=== PATIENT | female | born 1960 | race Caucasian/White ===

== ENCOUNTER 2022-12-30 09:38 | Observation (INO) | payer BC, SELFPAY ==
[2022-12-30] VITALS (7 sets, daily range): BP systolic 152–168; BP diastolic 74–90; PULSE 60–78; RESP 18–22; TEMP 36.7–37.2; O2SAT 92–98; BMI 30.7; BMI 30.5
--- NOTE | 2022-12-30 10:23 | CT_ITS ---
[address] [address] Patient Name: JOEL DEWITT MRN: [id number] date: 1960 Sex: F Assigned Patient Location: ED.MAIN Current Patient Location: Accession/Order Number: [id number] Exam Date: 12/30/2022 11:39 Report Date: 12/30/2022 12:20 At the request of: NOREEN ESTRADA Procedure: CT abdomen pelvis w con EXAMINATION: CT abdomen pelvis w con HISTORY: RUQ abdominal pain, nausea vomiting COMPARISON: Ultrasound right upper quadrant 12/29/2022 TECHNIQUE: Axial, Coronal, and Sagittal images were obtained without and/or with IV contrast as indicated by examination type. Dose reduction techniques were achieved by using automated exposure control and/or adjustment of mA and/or kV according to patient size and/or use of iterative reconstruction technique. FINDINGS: LUNG BASES: No visible pulmonary or pleural disease. LIVER: No enlargement, atrophy, suspicious density, or significant focal lesion. BILIARY: Circumferential gallbladder wall thickening up to 6 mm. Within gallbladder neck is a 2.0 cm stone. No free fluid or abnormal duct dilation. PANCREAS: No lesion, fluid collection, or abnormal duct dilatation. SPLEEN: No enlargement or focal lesion. ADRENALS: No mass or enlargement. KIDNEYS: No mass, obstruction, or calcification. BOWEL/MESENTERY: Prior sigmoid resection and anastomosis. Diverticula scattered along the colon without acute inflammatory changes. No visible mass, obstruction, or bowel wall thickening. Normal appendix. AORTA/VASCULAR: No aneurysm or dissection. RETROPERITONEUM: No mass or adenopathy. LYMPH NODES: No adenopathy. URINARY BLADDER: No visible focal wall thickening, lesion, or calculus. PELVIC ORGANS: No visible mass. Pelvic organs appropriate for patient age. ABDOMINAL WALL: No mass or hernia. BONES: No bony lesion or fracture. OTHER: Negative. IMPRESSION: 1.Cholelithiasis and acute cholecystitis. Electronically authenticated by: JUDY TALLEY Date: 12/30/2022 12:20
--- NOTE | 2022-12-30 11:02 | ED_ITS ---
HPI - Abdominal Pain General Chief Complaint: Abdominal Pain Time Seen by Provider: 12/30/22 10:22 Source: patient Mode of arrival: walk-in Limitations: no limitations History of Present Illness HPI narrative: cc - abdominal pain patient returns complaining of RUQ abd pain. 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 She had pain this morning along with nausea. Only drank water - nothing to eat or drink. She was evaluated in our ED yesterday and GB US revealed gallstones without signs of acute cholecystitis. No fever or chills. Pain radiates to right flank. She told me that she called Dr Hooper' office and they could not get her an appointment until next week. She also tried to schedule an appointment with Dr Hess but was told that since he was not personal lines advisor this week they could not sc hedule a follow up appointment. Related Data Home Medications Medication Instructions Recorded Confirmed citalopram 40 mg tablet 40 mg PO .daily 12/30/22 12/30/22 famotidine 20 mg tablet 20 mg PO Q12H 12/30/22 12/30/22 Allergies Allergy/AdvReac Type Severity Reaction Status Date / Time penicillin G Allergy Severe Verified 12/30/22 10:02 adhesive tape AdvReac Intermediate Verified 12/30/22 10:02 Exam Narrative: Exam Narrative: Nurses notes and vital signs reviewed and patient is not hypoxic. General: Well-appearing and in no apparent distress. Skin: Warm, dry, no pallor noted. No rash. Head: Normocephalic, atraumatic. Neck: Supple, non-tender. Eye: Pupils are equal, round and EOMI. No scleral icterus. Ears, Nose, Mouth, and Throat: TM are clear, no nasal mucosal hypertrophy. Oral mucosa is moist, no posterior oropharynx erythema, uvula is mid-line Cardiovascular: Regular Rate and Rhythm without murmur, gallop or rub. Respiratory: No accessory muscle use or respiratory distress. Lungs are clear to auscultation, no wheezing, rales or rhonchi Chest Wall: no tenderness Back: No midline thoracic or lumbar vertebral tenderness. No CVA tenderness Musculoskeletal: normal ROM, no calf or popliteal tenderness, no lower extremity edema/swelling GI: Abdomen is soft, non-distended. Normal bowel sounds. No masses appreciated. No tenderness to palpation. No rebound, guarding, or rigidity noted. Neurological: A&O x4. No cranial nerve dysfunction observed. No truncal ataxia. Moves all extremities. Sensation intact. Psychiatric: Cooperative and interactive. Normal mood and affect. Constitutional: Vital Signs, click to edit/add: Vital Signs - 24 hr 12/30/22 09:56 Temperature 98.5 F Pulse Rate [Monito r Left] 77 Respiratory Rate 22 Blood Pressure [Le ft Arm] 166/90 H Pulse Oximetry 97 Oxygen Delivery Me thod Room Air Course Vital Signs Vital signs: Vital Signs Temperature 98.5 F 12/30/22 09:56 Pulse Rate 77 12/30/22 09:56 Respiratory Rate 22 12/30/22 09:56 Blood Pressure 166/90 H 12/30/22 09:56 Pulse Oximetry 97 12/30/22 09:56 Oxygen Delivery Method Room Air 12/30/22 09:56 Temperature 98.5 F 12/30/22 09:56 Pulse Rate 77 12/30/22 09:56 Respiratory Rate 22 12/30/22 09:56 Blood Pressure 166/90 H 12/30/22 09:56 Pulse Oximetry 97 12/30/22 09:56 Oxygen Delivery Method Room Air 12/30/22 09:56 MDM - Abdominal Pain MDM Narrative Medical decision making narrative: peripheral IV established and blood drawn and sent for testing. The patient was sent for CT scanning of the abdomen pelvis with contrast. The patient received normal saline IV fluid, IV Dilaudid, IV Zofran and oral dissolvable While We Awaited the Results of Her Testing. CT revealed acute cholecystitis in addition to the cholelithiasis seen on yesterday's ultrasound. WBC slightly elevated at 11.7 with left shift. Unremarkable LFTs and normal ernal function On recheck, the patient felt better after Emergency Department treatment. Case discussed with the on-call general surgeon. Dr. Hooper agreed to admit this patient and his service with plans to take the patient's surgery tomorrow. The patient is ALLERGIC to penicillin therefore we gave IV Cipro and IV Flagyl. The patient is agreeable to admission. Lab Data Labs: Lab Results 12/30/22 Range/Units 11:06 WBC 11.7 H (4.0-11.0) 10^3/uL RBC 5.21 (4.20-5.40) 10^6/uL Hgb 14.6 (12.0-16.0) g/dL Hct 45.3 (36.0-48.0) % MCV 86.9 (81.0-99.0) fL MCH 28.0 (26.7-34.0) pg MCHC 32.2 (29.9-35.2) g/dL RDW 13.5 (11.0-15.0) % Plt Count 353 (150-450) 10^3/uL MPV 10.1 (9.5-13.5) fL Neut % (Auto) 81.1 H (43.0-75.0) % Lymph % (Auto) 14.0 L (20.5-60.0) % [place] % (Auto) 4.0 (1.7-12.0) % Eos % (Auto) 0.2 L (0.9-7.0) % Baso % (Auto) 0.4 (0.2-2.0) % Neut # (Auto) 9.5 H (1.4-6.5) 10^3/uL Lymph # (Auto) 1.6 (1.2-3.8) 10^3/uL Independence # (Auto) 0.5 (0.3-0.8) 10^3/uL Eos # (Auto) 0.0 (0.0-0.7) 10^3/uL Baso # (Auto) 0.1 (0.0-0.1) 10^3/uL Nucleated RBCs 0 Sodium 143 (136-145) mmol/L Potassium 4.0 (3.5-5.1) mmol/L Chloride 105 (98-107) mmol/L Carbon Dioxide 26.4 (21.0-32.0) mmol/L Anion Gap 15.6 BUN 8.0 (7.0-18.0) mg/dL Creatinine 0.87 (0.55-1.02) mg/dL Est GFR ( Amer) >60 (>=60) Est GFR (Non-Af Amer) >60 (>=60) BUN/Creatinine Ratio 9.2 Glucose 109 H (74-106) mg/dL Calcium 9.5 (8.5-10.1) mg/dL Total Bilirubin 0.5 (0.2-1.0) mg/dL AST 17 (15-37) U/L ALT 21 (14-59) U/L Total Protein 8.0 (6.4-8.2) g/dL Albumin 3.8 (3.4-5.0) g/dL Globulin 4.2 g/dL Albumin/Globulin Ratio 0.9 Lipase 63.0 L (73.0-393.0) U/L Discharge Plan Discharge Chief Complaint: Abdominal Pain Clinical Impression: Acute calculous cholecystitis Patient Disposition: Admitted As Inpatient Time of Disposition Decision: 12:39 Condition: Good Prescriptions: No Action citalopram 40 mg tablet 40 mg PO .daily famotidine 20 mg tablet 20 mg PO Q12H Referrals: Yair De La Cruz [Primary Care Provider] - 1 week
[2022-12-30 11:13] LABS: Basophils Absolute Auto 0.1 10^3/uL (0.0-0.1); Basophils Percent Auto 0.4 % (0.2-2.0); Eosinophils Percent Auto 0.2 % (0.9-7.0); Hematocrit 45.3 % (36.0-48.0); Hemoglobin 14.6 g/dL (12.0-16.0); Immature Granulocytes Abs Auto 0.03 10^3/uL (0.00-0.03); Immature Granulocytes Pct Auto 0.3 % (0.0-0.5); Lymphocytes Absolute Auto 1.6 10^3/uL (1.2-3.8); Mean Corpuscular HGB Conc 32.2 g/dL (29.9-35.2); Mean Corpuscular Volume 86.9 fL (81.0-99.0); Mean Platelet Volume 10.1 fL (9.5-13.5); Monocytes Absolute Auto 0.5 10^3/uL (0.3-0.8); Neutrophils Absolute Auto 9.5 10^3/uL (1.4-6.5); Neutrophils Percent Auto 81.1 % (43.0-75.0); Nucleated Red Blood Cells 0; Platelet Count 353 10^3/uL (150-450); Red Blood Count 5.21 10^6/uL (4.20-5.40); Red Cell Distribution Width 13.5 % (11.0-15.0); White Blood Count 11.7 10^3/uL (4.0-11.0)
[2022-12-30] MEDS: HYOSCYAMINE SULFATE 0.125 MG TAB.SUBL SL (11:21)
[2022-12-30] MEDS: ONDANSETRON PF 4 MG/2 ML VIAL IV ×2 (11:21→16:10)
[2022-12-30] MEDS: 0.9 % SODIUM CHLORIDE 1,000 ML 100 ML IV (11:22)
[2022-12-30] MEDS: HYDROMORPHONE HCL 1 MG/ML CARTRIDGE IVP (11:22)
[2022-12-30 11:27] LABS: Alanine Aminotransferase 21 U/L (14-59); Albumin Globulin Ratio 0.9; Albumin Level 3.8 g/dL (3.4-5.0); Alkaline Phosphatase 78 U/L (46-116); Anion Gap 15.6; Aspartate Amino Transferase 17 U/L (15-37); BUN Creatinine Ratio 9.2; Bilirubin Total 0.5 mg/dL (0.2-1.0); Calcium 9.5 mg/dL (8.5-10.1); Carbon Dioxide 26.4 mmol/L (21.0-32.0); Chloride 105 mmol/L (98-107); Estimated GFR (African America >60 (>=60); Estimated GFR (Non-African Ame >60 (>=60); Globulin 4.2 g/dL; Glucose 109 mg/dL (74-106); Sodium 143 mmol/L (136-145)
--- NOTE | 2022-12-30 11:45 | PC.NURSE ---
pt states nausea is improved after receiving IV nausea medication
[2022-12-30] MEDS: METRONIDAZOLE/SODIUM CHLORIDE 500 MG/100 ML PREMIX 100 MG IV (13:05)
[2022-12-30] MEDS: CIPROFLOXACIN IN 5 % DEXTROSE 400 MG/200 ML PIGGYBACK 200 MG IV ×2 (15:07→23:11)
--- NOTE | 2022-12-30 16:02 | P.HP_ITS ---
H&P: HPI History of Present Illness Chief complaint: Acute cholecystitis Narrative: Timothy Fall is a 62-year-old female presented to the [facility] Emergency Department for 2nd day in a row with complaints of right upper quadrant pain radiating to the back which began on Tuesday. She had an ultrasound the gallbladder performed yesterday which showed gallstones without acute cholecystitis. Today she had a CT scan of the abdomen and pelvis which demonstrated acute cholecystitis with cholelithiasis. She admits to nausea and vomiting but denies any fevers or chills or jaundice. Her white blood count slightly elevated eleven thousand. She hasn't been able to keep any food down for two days. 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 She smokes ten cigarettes daily for forty-two years. She denies alcohol use and sixteen years. She consumes caffeine regularly. Denies any history of ulcer disease or gastritis. 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 Review of Systems ROS Status of ROS 10 or more systems reviewed and unremarkable except as noted in h istory and below [facility] Medical History (Updated 12/30/22 @ 16:08 by Chucky Hooper MD) Surgical History Meds Home Medications and Allergies Home Medications Medication Instructions Recorded Confirmed Type citalopram 40 mg tablet 40 mg PO .daily 12/30/22 12/30/22 History famotidine 20 mg tablet 20 mg PO Q12H 12/30/22 12/30/22 History Allergies Allergy/AdvReac Type Severity Reaction Status Date / Time penicillin G Allergy Severe Verified 12/30/22 10:02 adhesive tape AdvReac Intermediate Verified 12/30/22 10:02 Exam Narrative: Exam Narrative: alert and oriented to person place and time and no acute distress Constitutional: Vital Signs, click to edit/add: Vital Signs - 24 hr 12/30/22 09:56 12/30/22 13:54 12/30/22 14:43 Temperature 98.5 F 98.1 F Pulse Rate 60 Pulse Rate [Monito r Left] 77 Respiratory Rate 22 18 Blood Pressure [Le ft Arm] 166/90 H 168/79 H Pulse Oximetry 97 95 Oxygen Delivery Me thod Room Air Room Air Room Air 12/30/22 14:43 Temperature Pulse Rate Pulse Rate [Monito r Left] 62 Respiratory Rate 18 Blood Pressure [Le ft Arm] Pulse Oximetry Oxygen Delivery Me thod Room Air HENMT: Common normals: normocephalic, head/scalp atraumatic and hearing grossly normal bilaterally Chest: Common normals: inspection of chest normal Cardio: Common normals: regular rate GI: Common normals: Normal to inspection, nondistended, normoactive bowel sounds present, soft to palpation, non-tender, no hepatosplenomegaly and no masses Inspection: other (scars present from prior surgical procedures) Neuro: Common normals: oriented x3 Psych: Common normals: mental status grossly normal Skin: Common normals: no rashes or lesions noted, no wounds, skin turgor normal and no jaundice Results Labs Labs: Short CBC 12/30/22 Range/Units 11:06 WBC 11.7 H (4.0-11.0) 10^3/uL Hgb 14.6 (12.0-16.0) g/dL Hct 45.3 (36.0-48.0) % Plt Count 353 (150-450) 10^3/uL BMP 12/30/22 11:06 Sodium 143 Potassium 4.0 Chloride 105 Carbon Dioxide 26.4 BUN 8.0 Creatinine 0.87 Glucose 109 H Calcium 9.5 Liver Function 12/30/22 Range/Units 11:06 Total Bilirubin 0.5 (0.2-1.0) mg/dL AST 17 (15-37) U/L ALT 21 (14-59) U/L Albumin 3.8 (3.4-5.0) g/dL Imaging CT scan - abdomen: Attestation: I have reviewed the pertinent imaging results. Assessment and Plan Assessment and Plan (1) Acute calculous cholecystitis: (2) Anxiety: (3) Tobacco abuse: Plan Tobacco cessation discussed with patient Robotic cholecystectomy with possible open cholecystectomy. Risks benefits and alternatives to surgery may include infection, bleeding, bile duct injury, blood clots to the legs or lungs, pneumonia, heart attack, stroke, and/or . She voiced understanding of all the above and wish to proceed.
[2022-12-30] MEDS: HYDROMORPHONE HCL 0.5 MG/0.5 ML SYRINGE IV ×2 (16:10→20:30)
--- NOTE | 2022-12-30 17:10 | PM.HP ---
H&P: HPI History of Present Illness Chief complaint: Acute cholecystitis Narrative: Patient is a 62-year-old female with past medical history of anxiety and tobacco abuse who presents with a three-day history of right upper quadrant pain and intractable nausea vomiting. She denies any fevers chills or diarrhea. She was found to have acute on the cystitis with Lola lithiasis on CT scan in the Emergency Room. Patient was admitted for surgery scheduled for tomorrow under the care of Dr. Hooper. Patient denies wanting any nicotine patch at this time. She states that she can easily climb two flights of stairs without having shortness of breath or chest pain. She has had several previous surgeries including a colon resection and has never had any issues with anesthesia in the past. Denies any family history of any issues with anesthesia. She denies any heart history history of diabetes. She takes Celexa only for her anxiety and some famotidine for GERD symptoms. Review of Systems ROS Narrative ROS: a complete review of systems were reviewed with patient and are positive as below or listed in History of Chief Complaint. General: no fever, chills, night sweats Head: no headache, trauma, visual changes, nausea or vomiting Skin: no reported rashes, itching or sores Eyes: no blurriness of vision Ears: no reported hearing loss, vertigo, earache, or tinnitus Throat: no sore throat, hoarseness, swelling of neck, or tongue pain Heart: no chest pain Lungs: no shortness of breath or cough GI: no diarrhea or but vomiting/nausea Urinary: no urinary urgency, frequency or pain Neuro: no numbness or tingling HEM: no bleeding issues or bruising ENDO: no thyroid problems Psych: no anxiety or depression PFSH PFSH Medical History Surgical History Meds Home Medications and Allergies Home Medications Medication Instructions Recorded Confirmed Type citalopram 40 mg tablet 40 mg PO .daily 12/30/22 12/30/22 History famotidine 20 mg tablet 20 mg PO Q12H 12/30/22 12/30/22 History Allergies Allergy/AdvReac Type Severity Reaction Status Date / Time penicillin G Allergy Severe Verified 12/30/22 10:02 adhesive tape AdvReac Intermediate Verified 12/30/22 10:02 Exam Narrative: Exam Narrative: General: Patient is alert, and oriented to person, place and time with normal affect, proper hygiene Skin: no visible rashes, or ulcers Head: atraumatic, acephalic Eyes: PERRLA, no nystagmus present, conjunctiva clear, no scleral icterus Ears: normal gross auditory acuity Nose: symmetric, no discharge, no maxillary or frontal sinus tenderness Mouth/Throat: no erythema, exudate, or tonsillar enlargement, normal dentition Neck: no masses palpated, normal thyroid, no JVD or audible carotid bruits Heart: Normal rate and rhythm, no murmurs/rubs/gallops Lungs: no audible wheezes, crackles and normal breath sounds all lung pearl Abdomen: palpable pain RUQ, some rebound/guarding/ or rigidity Musculoskeletal: muscle atrophy noted, ROM is limited due to being in hospital bed, no swelling bilateral lower extremities Vascular: Normal carotid, radial, femoral, posterior tibial, and dorsalis pedis pulses Lymph: no supraclavicular, axillary, or anterior/posterior cervical adenopathy Neuro: CN II-X grossly intact, normal sensation upper and lower extremities Constitutional: Vital Signs, click to edit/add: Vital Signs - 24 hr 12/30/22 09:56 12/30/22 13:54 12/30/22 14:43 Temperature 98.5 F 98.1 F Pulse Rate 60 Pulse Rate [Monito r Left] 77 Respiratory Rate 22 18 Blood Pressure [Le ft Arm] 166/90 H 168/79 H Pulse Oximetry 97 95 Oxygen Delivery Me thod Room Air Room Air Room Air 12/30/22 14:43 12/30/22 16:59 Temperature Pulse Rate Pulse Rate [Monito r Left] 62 Respiratory Rate 18 Blood Pressure [Le ft Arm] Pulse Oximetry 98 Oxygen Delivery Me thod Room Air Results Labs Labs: Short CBC 12/30/22 Range/Units 11:06 WBC 11.7 H (4.0-11.0) 10^3/uL Hgb 14.6 (12.0-16.0) g/dL Hct 45.3 (36.0-48.0) % Plt Count 353 (150-450) 10^3/uL BMP 12/30/22 11:06 Sodium 143 Potassium 4.0 Chloride 105 Carbon Dioxide 26.4 BUN 8.0 Creatinine 0.87 Glucose 109 H Calcium 9.5 Liver Function 12/30/22 Range/Units 11:06 Total Bilirubin 0.5 (0.2-1.0) mg/dL AST 17 (15-37) U/L ALT 21 (14-59) U/L Albumin 3.8 (3.4-5.0) g/dL Assessment and Plan Assessment and Plan (1) Acute calculous cholecystitis: (2) Anxiety: (3) Tobacco abuse: Plan #1 acute Lola cystitis with cholelithiasis-nothing by mouth, will provide good hydration with LR at one twenty-five, surgery scheduled for tomorrow #2 anxiety-given Vistaril for nighttime #3 elevated blood pressure-when necessary hydralazine #4 tobacco abuse-is not desire to quit and does not want a nicotine patch at this time Patient is a full code Patient is admitted to observation status and is not expected to stay more than one night SCDs for deep vein thrombosis prophylaxis as patient is scheduled for surgery tomorrow hold aspirin
[2022-12-30] MEDS: PANTOPRAZOLE SODIUM 40 MG VIAL IV (17:52)
[2022-12-30] MEDS: LACTATED RINGER'S SOLUTION 1,000 ML 125 ML IV (17:53)
[2022-12-30] MEDS: PROMETHAZINE HCL 25 MG/ML VIAL IV (20:33)
[2022-12-30 22:05] LABS: Bilirubin Urine NEGATIVE (NEGATIVE); Blood Urine TRACE-I (NEGATIVE); Clarity Urine CLEAR (CLEAR); Color Urine YELLOW (YELLOW); Glucose Urine UA NEGATIVE (NEGATIVE); Ketones Urine >=80 mg/dL (NEGATIVE); Leukocyte Esterase Urine NEGATIVE (NEGATIVE); Nitrite Urine NEGATIVE (NEGATIVE); Protein Urine NEGATIVE (NEG/TRACE); Specific Gravity Urine 1.015 (1.005-1.025); pH Urine 6.5 (5.0-9.0)
[2022-12-30 22:11] LABS: Bacteria Urine TRACE #/HPF (NONE SEEN); Mucus Urine NONE SEEN (NONE SEEN); Squamous Epithelial Cell Urine FEW #/LPF (NONE/RARE); WBC Urine 0-2 #/HPF (NONE SEEN)
[2022-12-30 22:12] LABS: Cast Seen? NONE SEEN #/LPF (NONE SEEN); Crystals Seen? None Seen #/HPF (None Seen); Urine Culture Indicated NO
[2022-12-31] VITALS (18 sets, daily range): BP systolic 97–165; BP diastolic 63–87; PULSE 68–104; RESP 12–20; TEMP 36.8–37.1; O2SAT 90–98
[2022-12-31] MEDS: HYDROMORPHONE HCL 0.5 MG/0.5 ML SYRINGE IV ×2 (00:28→19:45)
[2022-12-31] MEDS: METRONIDAZOLE/SODIUM CHLORIDE 500 MG/100 ML PREMIX 100 MG IV ×2 (03:00→16:41)
[2022-12-31] MEDS: LACTATED RINGER'S SOLUTION 1,000 ML 125 ML IV ×3 (04:40→16:40)
[2022-12-31 05:54] LABS: Hematocrit 46.3 % (36.0-48.0); Hemoglobin 15.2 g/dL (12.0-16.0); Mean Corpuscular HGB Conc 32.8 g/dL (29.9-35.2); Mean Corpuscular Hemoglobin 28.8 pg (26.7-34.0); Mean Corpuscular Volume 87.7 fL (81.0-99.0); Mean Platelet Volume 10.7 fL (9.5-13.5); Platelet Count 332 10^3/uL (150-450); Red Blood Count 5.28 10^6/uL (4.20-5.40); Red Cell Distribution Width 13.7 % (11.0-15.0); White Blood Count 17.2 10^3/uL (4.0-11.0)
[2022-12-31 06:32] LABS: INR 1.01; Prothrombin Time 10.7 sec (9.0-11.6)
[2022-12-31] MEDS: ONDANSETRON PF 4 MG/2 ML VIAL IV (06:47)
--- NOTE | 2022-12-31 07:22 | PM.GSPRC ---
Date of procedure: 12/31/22 Pre-op diagnosis: acute cholecystitis with cholelithiasis Post-op diagnosis: same Procedure: robotic cholecystectomy with IC green 62-year-old female presented to the Emergency Department with acute cholecystitis and cholelithiasis. She was taken to the operating suite informed consent was obtained from the patient for robotic cholecystectomy. Risks benefits and alternatives to procedure were explained to the patient in detail. She agreed to the procedure. Patient was given a general anesthetic by the food safety field specialist. The abdomen was prepped and draped usual sterile fashion. Timeout was taken. Preoperative antibiotics have been given. SCDs were placed on bilateral lower extremities. A subumbilical incision was made down to the anterior rectus fascia was opened on the midline and traction sutures of 0 Vicryl were placed. Peritoneal cavity was entered. A Quintero port was placed into the abdomen which was insufflated to fifteen mm carbon monoxide pressure. Next an 8 mm port was placed in the left upper quadrant under direct visualization and two more 8 mm ports in the right midclavicular line lower abdomen and right lateral lower abdomen under direct visualization. Patient was then placed into reverse Trendelenburg position with left side down. The robot was then docked. All instruments were inserted into the peritoneal cavity under direct visualization and the progress was used to grasp the dome of the gallbladder and retracted cephalad liver and then the other grasper was used on Felder's pouch retracted laterally. The dissector was then used to dissect out the cystic duct and cystic artery. Small rent was made in the gallbladder and this had to be suction irrigated. The gallbladder was extremely distended and acute. The IC Knapp was not of help in finding the ducts due to acute inflammation? Critical view was taken anterior and posterior to the cystic duct and cystic artery after they had been clipped with two clips away from the gallbladder one clip on the gallbladder side and then they were transected. The gallbladder was taken off the liver with hook dissector maintaining hemostasis. The gallbladder opened and spilled because of being distended. This was all suctioned out as much as possible. Once the gallbladder removed from the liver bed it was put into an Endobag through the umbilical port after removing one of the graspers. Irrigation was carried out with 1 L saline and aspirated. The umbilical incision had to be extended in order to get the distended gallbladder out and that was done and then that opening was closed with 0 Vicryl suture in interrupted fashion and then all skin incisions were closed with 4 Monocryl suture in running subicular fashion after anesthetizing incisions with half percent plain Marcaine 30 mL total after removing all ports from the abdominal wall. Sterile dressings were placed. Sponge and instrument counts were correct. Findings: acute cholecystitis with cholelithiasis Anesthesia: GETA and none Surgeon: Chucky Hooper Estimated blood loss (mL): 75 Specimens: gallbladder and stones Complications: No Condition: stable Disposition: PACU
[2022-12-31 07:24] LABS: Alanine Aminotransferase 23 U/L (14-59); Albumin Globulin Ratio 0.8; Albumin Level 3.5 g/dL (3.4-5.0); Alkaline Phosphatase 75 U/L (46-116); Anion Gap 17.2; Aspartate Amino Transferase 19 U/L (15-37); BUN Creatinine Ratio 6.4; Bilirubin Total 0.5 mg/dL (0.2-1.0); Calcium 9.1 mg/dL (8.5-10.1); Carbon Dioxide 23.3 mmol/L (21.0-32.0); Chloride 104 mmol/L (98-107); Estimated GFR (African America >60 (>=60); Estimated GFR (Non-African Ame >60 (>=60); Globulin 4.2 g/dL; Glucose 140 mg/dL (74-106); Potassium 3.5 mmol/L (3.5-5.1); Sodium 141 mmol/L (136-145); Total Protein 7.7 g/dL (6.4-8.2)
[2022-12-31] MEDS: INDOCYANINE GREEN 25 MG VIAL 5 MG INJ (07:27)
[2022-12-31] MEDS: SCOPOLAMINE 1 EACH PATCH.TD.3 1 PATCH TD (07:30)
[2022-12-31] MEDS: BUPIVACAINE HCL 0.5% PF 50 MG/10 ML VIAL 20 ML INJ (08:51)
--- NOTE | 2022-12-31 09:55 | PC.NURSE ---
4 bandaids to abdomen; right lateral, right medial, umbilicus and left
[2022-12-31] MEDS: CIPROFLOXACIN IN 5 % DEXTROSE 400 MG/200 ML PIGGYBACK 200 MG IV ×2 (10:32→21:02)
--- NOTE | 2022-12-31 10:48 | CM.NOTE ---
Rounds made with Dr. Simpson, pt in OR at this time. Dr. Simpson will see pt when surgery complete and pt back to room.
--- NOTE | 2022-12-31 14:41 | P.PN_ITS ---
Progress Note: Subjective Subjective Interval history: Patient is a 62-year-old female with past medical history of anxiety and tobacco abuse who presents with a three-day history of right upper quadrant pain and intractable nausea vomiting. She denies any fevers chills or diarrhea. She was found to have acute on the cystitis with Lola lithiasis on CT scan in the Emergency Room. Patient was admitted for surgery scheduled for tomorrow under the care of Dr. Hooper. Patient denies wanting any nicotine patch at this time. She states that she can easily climb two flights of stairs without having shortness of breath or chest pain. She has had several previous surgeries including a colon resection and has never had any issues with anesthesia in the past. Denies any family history of any issues with anesthesia. She denies any heart history history of diabetes. She takes Celexa only for her anxiety and jason e famotidine for GERD symptoms. I am seeing her today post-op, She is doing well. Pain is controlled. No concerns at this time. Exam Narrative: Exam Narrative: General: Patient is alert, and oriented to person, place and time with normal affect, proper hygiene Skin: no visible rashes, or ulcers Head: atraumatic, acephalic Heart: Normal rate and rhythm, no murmurs/rubs/gallops Lungs: no audible wheezes, crackles and normal breath sounds all lung pearl Abdomen: abdomen tender, no rigidity, dressings c/d/i Musculoskeletal: no swelling bilateral lower extremities Lymph: no supraclavicular, axillary, or anterior/posterior cervical adenopathy Neuro: CN II-X grossly intact, normal sensation upper and lower extremities Constitutional: Vital Signs, click to edit/add: Vital Signs - 24 hr 12/30/22 14:43 12/30/22 14:43 12/30/22 16:59 Temperature 98.1 F Pulse Rate 60 Pulse Rate [Monito r Left] 62 Respiratory Rate 18 18 Blood Pressure Blood Pressure [Le ft Arm] 168/79 H Blood Pressure [Ri ght Arm] Pulse Oximetry 95 98 Oxygen Delivery Me thod Room Air Room Air 12/30/22 18:05 12/30/22 20:02 12/30/22 21:50 Temperature 99 F Pulse Rate 78 Pulse Rate [Monito r Left] Respiratory Rate 18 Blood Pressure Blood Pressure [Le ft Arm] 152/74 H Blood Pressure [Ri ght Arm] Pulse Oximetry 94 L 98 92 L [facility] 12/30/22 22:01 12/31/22 02:00 12/31/22 04:41 Temperature Pulse Rate Pulse Rate [Monito r Left] Respiratory Rate Blood Pressure Blood Pressure [Le ft Arm] Blood Pressure [Ri ght Arm] Pulse Oximetry 94 L 95 96 [facility] 12/31/22 06:46 12/31/22 09:15 12/31/22 09:20 Temperature 98.5 F 98.8 F Pulse Rate 75 103 H 94 H Pulse Rate [Monito r Left] Respiratory Rate 18 18 18 Blood Pressure 132/87 H 133/82 H Blood Pressure [Le ft Arm] Blood Pressure [Ri ght Arm] 165/76 H Pulse Oximetry 92 L 95 93 L Oxygen Delivery [facility] Room Air Room Air 12/31/22 09:25 12/31/22 09:30 12/31/22 09:35 Temperature Pulse Rate 98 H 83 89 Pulse Rate [Monito r Left] Respiratory Rate 14 16 12 Blood Pressure 133/75 H 131/77 H 138/77 H Blood Pressure [Le ft Arm] Blood Pressure [Ri ght Arm] Pulse Oximetry 98 92 L 93 L Oxygen Delivery [facility] Room Air Room Air 12/31/22 09:45 12/31/22 09:55 12/31/22 10:14 Temperature 98.3 F Pulse Rate 75 74 85 Pulse Rate [Monito r Left] Respiratory Rate 20 16 16 Blood Pressure 141/75 H 127/77 H Blood Pressure [Le ft Arm] Blood Pressure [Ri ght Arm] 145/79 H Pulse Oximetry 93 L 93 L 90 L Oxygen Delivery [facility] Room Air Room Air Room Air 12/31/22 10:35 12/31/22 10:54 12/31/22 11:18 Temperature Pulse Rate 68 80 68 Pulse Rate [Monito r Left] Respiratory Rate 14 16 14 Blood Pressure Blood Pressure [Le ft Arm] Blood Pressure [Ri ght Arm] 136/76 H 126/73 H 106/67 Pulse Oximetry 90 L 90 L 90 L [facility] 12/31/22 13:34 12/31/22 14:00 Temperature 98.2 F Pulse Rate 104 H Pulse Rate [Monito r Left] Respiratory Rate 16 Blood Pressure Blood Pressure [Le ft Arm] Blood Pressure [Ri ght Arm] 97/64 Pulse Oximetry 95 Oxygen Delivery Me [facility]od Room Air Room Air Progress Note: Objective Labs Labs: Short CBC 12/31/22 Range/Units 04:53 WBC 17.2 H (4.0-11.0) 10^3/uL Hgb 15.2 (12.0-16.0) g/dL Hct 46.3 (36.0-48.0) % Plt Count 332 (150-450) 10^3/uL BMP 12/31/22 04:53 Sodium 141 Potassium 3.5 Chloride 104 Carbon Dioxide 23.3 BUN 5.0 L Creatinine 0.78 Glucose 140 H Calcium 9.1 Liver Function 12/31/22 Range/Units 04:53 Total Bilirubin 0.5 (0.2-1.0) mg/dL AST 19 (15-37) U/L ALT 23 (14-59) U/L Albumin 3.5 (3.4-5.0) g/dL Urine 12/30/22 Range/Units 21:45 Urine Color Yellow (YELLOW) Urine Clarity Clear (CLEAR) Urine pH 6.5 (5.0-9.0) Ur Specific [place] 1.015 (1.005-1.025) Urine Protein Negative (NEG/TRACE) mg/dL Urine Glucose (UA) Negative (NEGATIVE) mg/dL Progress Note: A&P Assessment and Plan (1) Acute calculous cholecystitis: (2) Anxiety: (3) Tobacco abuse: Plan #1 acute cholecystitis with cholelithiasis-continue IVF, post-op today, pain control, morning labs, surgery recs #2 anxiety-given Vistaril for nighttime #3 elevated blood pressure-when necessary hydralazine #4 tobacco abuse-is not desire to quit and does not want a nicotine patch at this time Patient is a full code Patient is admitted to observation status and is not expected to stay more than one night SCDs for deep vein thrombosis prophylaxis as patient is scheduled for surgery tomorrow hold aspirin Fall Risk Details Roberto Fall Scale Risk Level: Moderate Fall Risk Current Medications: Current Medications Acetaminophen (Acetaminophen 325 Mg Tablet) 650 mg PO Q6H PRN PRN Reason: Fever Celecoxib (Celecoxib 200 Mg Capsule) 200 mg PO QD JENNIE Last Admin: 12/31/22 10:31 Dose: Not Given Hydralazine HCl (Hydralazine Hcl 20 Mg/Ml Vial) 10 mg IVP Q4H PRN PRN Reason: Hypertension Hydromorphone HCl (Hydromorphone Hcl 0.5 Mg/0.5 Ml Syringe) 0.5 mg IV Q4H PRN PRN Reason: Pain Scale 7-10 Last Admin: 12/31/22 00:28 Dose: 0.5 mg Hydroxyzine Pamoate (Hydroxyzine Pamoate 25 Mg Capsule) 25 mg PO BEDTIME PRN PRN Reason: Anxiety Sodium Chloride (Sodium Chloride 0.9% 1,000 Ml) 1,000 mls @ 100 mls/hr IV .Q10H [facility] Last Admin: 12/31/22 05:33 Dose: Not Given Ciprofloxacin/Dextrose (Cipro In 5 % Dextrose 400 Mg/200 Ml Piggyback) 400 mg in 200 mls @ 200 mls/hr IV Q12H [facility] Last Infusion: 12/31/22 12:05 Dose: Infused Metronidazole (Flagyl 500 Mg/100 Ml Premix) 500 mg in 100 mls @ 100 mls/hr IV Q8H [facility] Last Admin: 12/31/22 10:31 Dose: Not Given Lactated Ringer's (Lactated Ringers) 1,000 mls @ 125 mls/hr IV .Q8H [facility] Last Admin: 12/31/22 08:45 Dose: 125 mls/hr Ondansetron HCl (Ondansetron Pf 4 Mg/2 Ml Vial) 4 mg IV Q6H PRN PRN Reason: Nausea Last Admin: 12/31/22 06:47 Dose: 4 mg Ondansetron HCl (Ondansetron 4 Mg Rapdis Tablet) 4 mg PO Q6H PRN PRN Reason: Nausea And Vomiting Pantoprazole Sodium (Pantoprazole Sodium 40 Mg Vial) 40 mg IV Q24H [facility] Last Admin: 12/30/22 17:52 Dose: 40 mg Promethazine HCl (Promethazine Hcl 25 Mg/Ml Vial) 25 mg IV Q6H PRN PRN Reason: Nausea And Vomiting Last Admin: 12/30/22 20:33 Dose: 25 mg Sodium Chloride (0.9 % Sodium Chloride 10 Ml Syringe - Saline Flush) 10 ml IV PRN PRN PRN Reason: flush Time Spent With Patient Time: Total time spent is greater than 50% in coordination of care (as documented) at patient's floor/unit and/or counseling patient:
[2022-12-31] MEDS: PANTOPRAZOLE SODIUM 40 MG VIAL IV (16:31)
[2022-12-31] MEDS: ACETAMINOPHEN 325 MG TABLET 650 MG PO (18:10)
[2022-12-31] MEDS: ONDANSETRON 4 MG RAPDIS TABLET PO (19:45)
[2022-12-31] MEDS: HYDROXYZINE PAMOATE 25 MG CAPSULE PO (21:03)
--- NOTE | 2022-12-31 21:15 | PC.NURSE ---
Bandages #1,2,and 4 CDI and #3 bandage saturated with serosang drainage. New dressing applied to umbilical area.
[2023-01-01] MEDS: METRONIDAZOLE/SODIUM CHLORIDE 500 MG/100 ML PREMIX 100 MG IV ×3 (00:07→17:41)
[2023-01-01] MEDS: ACETAMINOPHEN 325 MG TABLET 650 MG PO (00:11)
[2023-01-01] MEDS: LACTATED RINGER'S SOLUTION 1,000 ML 125 ML IV (01:42)
[2023-01-01 04:14] VITALS: BP 90/54; PULSE 66; RESP 16; TEMP 36.8; O2SAT 92
[2023-01-01 05:36] LABS: Basophils Percent Auto 0.2 % (0.2-2.0); Eosinophils Percent Auto 0.1 % (0.9-7.0); Hemoglobin 8.8 g/dL (12.0-16.0); Immature Granulocytes Abs Auto 0.07 10^3/uL (0.00-0.03); Immature Granulocytes Pct Auto 0.5 % (0.0-0.5); Lymphocytes Absolute Auto 2.3 10^3/uL (1.2-3.8); Lymphocytes Percent Auto 15.6 % (20.5-60.0); Mean Corpuscular HGB Conc 32.6 g/dL (29.9-35.2); Mean Corpuscular Hemoglobin 29.1 pg (26.7-34.0); Mean Corpuscular Volume 89.4 fL (81.0-99.0); Mean Platelet Volume 10.6 fL (9.5-13.5); Monocytes Absolute Auto 1.1 10^3/uL (0.3-0.8); Monocytes Percent Auto 7.5 % (1.7-12.0); Neutrophils Percent Auto 76.1 % (43.0-75.0); Platelet Count 242 10^3/uL (150-450); Red Blood Count 3.02 10^6/uL (4.20-5.40); White Blood Count 14.5 10^3/uL (4.0-11.0)
[2023-01-01 05:51] LABS: Alanine Aminotransferase 21 U/L (14-59); Albumin Globulin Ratio 0.8; Albumin Level 2.3 g/dL (3.4-5.0); Alkaline Phosphatase 46 U/L (46-116); Aspartate Amino Transferase 23 U/L (15-37); BUN Creatinine Ratio 15.5; Bilirubin Total 0.4 mg/dL (0.2-1.0); Carbon Dioxide 24.5 mmol/L (21.0-32.0); Chloride 108 mmol/L (98-107); Estimated GFR (African America >60 (>=60); Estimated GFR (Non-African Ame >60 (>=60); Globulin 2.8 g/dL; Glucose 102 mg/dL (74-106); Potassium 3.5 mmol/L (3.5-5.1); Sodium 141 mmol/L (136-145); Total Protein 5.1 g/dL (6.4-8.2)
[2023-01-01 07:47] VITALS: BP 102/56; PULSE 74; RESP 16; TEMP 36.8; O2SAT 93
[2023-01-01 08:49] LABS: INR 1.08; Prothrombin Time 11.4 sec (9.0-11.6)
[2023-01-01 09:03] LABS: Partial Thromboplastin Time 26.8 sec (22.3-36.2)
--- NOTE | 2023-01-01 09:56 | P.PN_ITS ---
Progress Note: Subjective Subjective Interval history: Patient without significant complaint this morning, breathing is fine, pain is well controlled, no flatus or BM yet Exam Constitutional Vital Signs - 24 hr 12/31/22 10:14 12/31/22 10:35 12/31/22 10:54 Temperature 98.3 F Pulse Rate 85 68 80 Pulse Rate [Monitor Left] Respiratory Rate 16 14 16 Blood Pressure [Right Arm] 145/79 H 136/76 H 126/73 H Pulse Oximetry 90 L 90 L 90 L Oxygen Delivery Method Room Air 12/31/22 11:18 12/31/22 13:34 12/31/22 14:00 Temperature 98.2 F Pulse Rate 68 104 H Pulse Rate [Monitor Left] Respiratory Rate 14 16 Blood Pressure [Right Arm] 106/67 97/64 Pulse Oximetry 90 L 95 Oxygen Delivery Method Room Air Room Air 12/31/22 20:20 12/31/22 21:48 01/01/23 04:14 Temperature 98.4 F 98.2 F Pulse Rate 83 66 Pulse Rate [Monitor Left] Respiratory Rate 18 16 Blood Pressure [Right Arm] 110/63 90/54 L Pulse Oximetry 94 L 92 L 92 L Oxygen Delivery Method Room Air Room Air Room Air 01/01/23 07:47 01/01/23 07:47 Temperature 98.3 F Pulse Rate 74 Pulse Rate [Monitor Left] 74 Respiratory Rate 16 Blood Pressure [Right Arm] 102/56 L Pulse Oximetry 93 L Oxygen Delivery Method Room Air Respiratory Common normals: normal respiratory effort and no retractions Cardio Common normals: regular rate and regular rhythm GI Inspection: other (Deferred evaluation to surgery) Progress Note: Objective Labs Labs: Short CBC 01/01/23 Range/Units 05:10 WBC 14.5 H (4.0-11.0) 10^3/uL Hgb 8.8 L (12.0-16.0) g/dL Hct 27.0 L (36.0-48.0) % Plt Count 242 (150-450) 10^3/uL BMP 01/01/23 05:10 Sodium 141 Potassium 3.5 Chloride 108 H Carbon Dioxide 24.5 BUN 13.0 Creatinine 0.84 Glucose 102 Calcium 8.0 L Liver Function 01/01/23 Range/Units 05:10 Total Bilirubin 0.4 (0.2-1.0) mg/dL AST 23 (15-37) U/L ALT 21 (14-59) U/L Albumin 2.3 L (3.4-5.0) g/dL Progress Note: A&P Assessment and Plan (1) Acute calculous cholecystitis: (2) Anxiety: (3) Tobacco abuse: Plan #1 acute cholecystitis with cholelithiasis-continue IVF, post-op today, pain control, morning labs, surgery recs #2 anxiety-given Vistaril for nighttime #3 elevated blood pressure-PRN hydralazine #4 tobacco abuse-is not desire to quit and does not want a nicotine patch at this time #5 Acute blood loss anemia secondary to the above. Possibly more likely dilutional as well. Doubt significant bleeding. Hemoglobin actually improved with repeat labs from this morning. Fall Risk Details Roberto Fall Scale Risk Level: Moderate Fall Risk Current Medications: Current Medications Acetaminophen (Acetaminophen 325 Mg Tablet) 650 mg PO Q6H PRN PRN Reason: Fever Last Admin: 01/01/23 00:11 Dose: 650 mg Celecoxib (Celecoxib 200 Mg Capsule) 200 mg PO QHS JENNIE Hydralazine HCl (Hydralazine Hcl 20 Mg/Ml Vial) 10 mg IVP Q4H PRN PRN Reason: Hypertension Hydromorphone HCl (Hydromorphone Hcl 0.5 Mg/0.5 Ml Syringe) 0.5 mg IV Q4H PRN PRN Reason: Pain Scale 7-10 Last Admin: 12/31/22 19:45 Dose: 0.5 mg Hydroxyzine Pamoate (Hydroxyzine Pamoate 25 Mg Capsule) 25 mg PO BEDTIME PRN PRN Reason: Anxiety Last Admin: 12/31/22 21:03 Dose: 25 mg Ciprofloxacin/Dextrose (Cipro In 5 % Dextrose 400 Mg/200 Ml Piggyback) 400 mg in 200 mls @ 200 mls/hr IV Q12H [facility] Last Infusion: 01/01/23 07:40 Dose: Infused Metronidazole (Flagyl 500 Mg/100 Ml Premix) 500 mg in 100 mls @ 100 mls/hr IV Q8H [facility] Last Infusion: 01/01/23 07:40 Dose: Infused Lactated Ringer's (Lactated Ringers) 1,000 mls @ 125 mls/hr IV .Q8H [facility] Last Admin: 06/03/23 01:42 Dose: 125 mls/hr Ondansetron HCl (Ondansetron Pf 4 Mg/2 Ml Vial) 4 mg IV Q6H PRN PRN Reason: Nausea Last Admin: 12/31/22 06:47 Dose: 4 mg Ondansetron HCl (Ondansetron 4 Mg Rapdis Tablet) 4 mg PO Q6H PRN PRN Reason: Nausea And Vomiting Pantoprazole Sodium (Pantoprazole Sodium 40 Mg Vial) 40 mg IV Q24H JENNIE Last Admin: 12/31/22 16:31 Dose: 40 mg Promethazine HCl (Promethazine Hcl 25 Mg/Ml Vial) 25 mg IV Q6H PRN PRN Reason: Nausea And Vomiting Sodium Chloride (0.9 % Sodium Chloride 10 Ml Syringe - Saline Flush) 10 ml IV PRN PRN PRN Reason: flush Time Spent With Patient Time: Total time spent is greater than 50% in coordination of care (as documented) at patient's floor/unit and/or counseling patient:
[2023-01-01 11:33] LABS: Basophils Absolute Auto 0.1 10^3/uL (0.0-0.1); Basophils Percent Auto 0.3 % (0.2-2.0); Eosinophils Percent Auto 0.1 % (0.9-7.0); Hematocrit 30.4 % (36.0-48.0); Hemoglobin 9.6 g/dL (12.0-16.0); Immature Granulocytes Abs Auto 0.04 10^3/uL (0.00-0.03); Immature Granulocytes Pct Auto 0.3 % (0.0-0.5); Lymphocytes Percent Auto 20.5 % (20.5-60.0); Mean Corpuscular HGB Conc 31.6 g/dL (29.9-35.2); Mean Corpuscular Hemoglobin 28.7 pg (26.7-34.0); Mean Platelet Volume 10.8 fL (9.5-13.5); Monocytes Absolute Auto 1.1 10^3/uL (0.3-0.8); Monocytes Percent Auto 7.2 % (1.7-12.0); Neutrophils Absolute Auto 10.5 10^3/uL (1.4-6.5); Neutrophils Percent Auto 71.6 % (43.0-75.0); Platelet Count 273 10^3/uL (150-450); Red Blood Count 3.34 10^6/uL (4.20-5.40); Red Cell Distribution Width 14.1 % (11.0-15.0); White Blood Count 14.7 10^3/uL (4.0-11.0)
[2023-01-01] MEDS: CIPROFLOXACIN IN 5 % DEXTROSE 400 MG/200 ML PIGGYBACK 200 MG IV ×2 (11:39→21:22)
--- NOTE | 2023-01-01 11:48 | P.PN_ITS ---
Progress Note: Subjective Subjective Interval history: Patient is a 62-year-old female with past medical history of anxiety and tobacco abuse who presents with a three-day history of right upper quadrant pain and intractable nausea vomiting. She denies any fevers chills or diarrhea. She was found to have acute on the cystitis with Lola lithiasis on CT scan in the Emergency Room. Patient was admitted for surgery scheduled for tomorrow under the care of Dr. Hooper. Patient denies wanting any nicotine patch at this time. She states that she can easily climb two flights of stairs without having shortness of breath or chest pain. She has had several previous surgeries including a colon resection and has never had any issues with anesthesia in the past. Denies any family history of any issues with anesthesia. She denies any heart history history of diabetes. She takes Celexa only for her anxiety and jason e famotidine for GERD symptoms. I am seeing her today post-op, She is doing well. Pain is controlled. No concerns at this time. Exam Constitutional Vital Signs - 24 hr 12/31/22 13:34 12/31/22 14:00 12/31/22 20:20 Temperature 98.2 F Pulse Rate 104 H Pulse Rate [Monitor Left] Respiratory Rate 16 Blood Pressure [Right Arm] 97/64 Pulse Oximetry 95 94 L Oxygen Delivery Method Room Air Room Air Room Air 12/31/22 21:48 01/01/23 04:14 01/01/23 07:47 Temperature 98.4 F 98.2 F Pulse Rate 83 66 Pulse Rate [Monitor Left] 74 Respiratory Rate 18 16 Blood Pressure [Right Arm] 110/63 90/54 L Pulse Oximetry 92 L 92 L Oxygen Delivery Method Room Air Room Air 01/01/23 07:47 Temperature 98.3 F Pulse Rate 74 Pulse Rate [Monitor Left] Respiratory Rate 16 Blood Pressure [Right Arm] 102/56 L Pulse Oximetry 93 L Oxygen Delivery Method Room Air Common normals: no apparent distress GI Common normals: Normal to inspection, nondistended, normoactive bowel sounds present Inspection: other (incisions clean dry and intact) Progress Note: Objective Labs Labs: Short CBC 01/01/23 01/01/23 Range/Units 05:10 11:00 WBC 14.5 H 14.7 H (4.0-11.0) 10^3/uL Hgb 8.8 L 9.6 L (12.0-16.0) g/dL Hct 27.0 L 30.4 L (36.0-48.0) % Plt Count 242 273 (150-450) 10^3/uL BMP 01/01/23 05:10 Sodium 141 Potassium 3.5 Chloride 108 H Carbon Dioxide 24.5 BUN 13.0 Creatinine 0.84 Glucose 102 Calcium 8.0 L Liver Function 01/01/23 Range/Units 05:10 Total Bilirubin 0.4 (0.2-1.0) mg/dL AST 23 (15-37) U/L ALT 21 (14-59) U/L Albumin 2.3 L (3.4-5.0) g/dL Progress Note: A&P Assessment and Plan (1) Acute calculous cholecystitis: Assessment and Plan: postop day #1 laparoscopic cholecystectomy with drop in hemoglobin and hematocrit 15-8.8 but vital signs are stable; will observe another day and recheck blood count tomorrow. Patient voiding without difficulty and tolerating liquids well block IV site and continue IV antibiotics since white blood count remains elevated at fourteen thousand (2) Anxiety: (3) Tobacco abuse: Plan as above Fall Risk Details Roberto Fall Scale Risk Level: Moderate Fall Risk Current Medications: Current Medications Acetaminophen (Acetaminophen 325 Mg Tablet) 650 mg PO Q6H PRN PRN Reason: Fever Last Admin: 01/01/23 00:11 Dose: 650 mg Celecoxib (Celecoxib 200 Mg Capsule) 200 mg PO QHS JENNIE Hydralazine HCl (Hydralazine Hcl 20 Mg/Ml Vial) 10 mg IVP Q4H PRN PRN Reason: Hypertension Hydromorphone HCl (Hydromorphone Hcl 0.5 Mg/0.5 Ml Syringe) 0.5 mg IV Q4H PRN PRN Reason: Pain Scale 7-10 Last Admin: 12/31/22 19:45 Dose: 0.5 mg Hydroxyzine Pamoate (Hydroxyzine Pamoate 25 Mg Capsule) 25 mg PO BEDTIME PRN PRN Reason: Anxiety Last Admin: 12/31/22 21:03 Dose: 25 mg Ciprofloxacin/Dextrose (Cipro In 5 % Dextrose 400 Mg/200 Ml Piggyback) 400 mg in 200 mls @ 200 mls/hr IV Q12H JENNIE Last Admin: 01/01/23 11:39 Dose: 200 mls/hr, 200 mls/hr Metronidazole (Flagyl 500 Mg/100 Ml Premix) 500 mg in 100 mls @ 100 mls/hr IV Q8H [facility] Last Infusion: 01/01/23 11:40 Dose: Infused Lactated Ringer's (Lactated Ringers) 1,000 mls @ 125 mls/hr IV .Q8H [facility] Last Admin: 01/01/23 01:42 Dose: 125 mls/hr Ondansetron HCl (Ondansetron Pf 4 Mg/2 Ml Vial) 4 mg IV Q6H PRN PRN Reason: Nausea Last Admin: 12/31/22 06:47 Dose: 4 mg Ondansetron HCl (Ondansetron 4 Mg Rapdis Tablet) 4 mg PO Q6H PRN PRN Reason: Nausea And Vomiting Pantoprazole Sodium (Pantoprazole Sodium 40 Mg Vial) 40 mg IV Q24H [facility] Last Admin: 12/31/22 16:31 Dose: 40 mg Promethazine HCl (Promethazine Hcl 25 Mg/Ml Vial) 25 mg IV Q6H PRN PRN Reason: Nausea And Vomiting Sodium Chloride (0.9 % Sodium Chloride 10 Ml Syringe - Saline Flush) 10 ml IV Q15M PRN PRN Reason: flush Time Spent With Patient Time: Total time spent is greater than 50% in coordination of care (as documented) at patient's floor/unit and/or counseling patient: Time with patient: less than 15 minutes
[2023-01-01] MEDS: HYDROMORPHONE HCL 0.5 MG/0.5 ML SYRINGE IV (11:56)
[2023-01-01 12:24] VITALS: O2SAT 92
[2023-01-01 14:49] VITALS: BP 109/68; PULSE 89; RESP 16; TEMP 37; O2SAT 95
[2023-01-01] MEDS: PANTOPRAZOLE SODIUM 40 MG VIAL IV (17:41)
[2023-01-01] MEDS: TRAMADOL HCL 50 MG TABLET PO (17:42)
[2023-01-01 19:44] VITALS: O2SAT 91
[2023-01-01] MEDS: HYDROXYZINE PAMOATE 25 MG CAPSULE PO (21:32)
[2023-01-01 23:05] VITALS: BP 108/65; PULSE 80; TEMP 36.9; O2SAT 90
[2023-01-02] MEDS: METRONIDAZOLE/SODIUM CHLORIDE 500 MG/100 ML PREMIX 100 MG IV (00:23)
[2023-01-02 04:41] LABS: Basophils Absolute Auto 0.1 10^3/uL (0.0-0.1); Basophils Percent Auto 0.7 % (0.2-2.0); Eosinophils Absolute Auto 0.1 10^3/uL (0.0-0.7); Eosinophils Percent Auto 1.3 % (0.9-7.0); Hematocrit 27.7 % (36.0-48.0); Hemoglobin 8.6 g/dL (12.0-16.0); Immature Granulocytes Abs Auto 0.03 10^3/uL (0.00-0.03); Immature Granulocytes Pct Auto 0.3 % (0.0-0.5); Lymphocytes Absolute Auto 2.9 10^3/uL (1.2-3.8); Lymphocytes Percent Auto 29.7 % (20.5-60.0); Mean Corpuscular Hemoglobin 28.6 pg (26.7-34.0); Mean Platelet Volume 10.4 fL (9.5-13.5); Monocytes Absolute Auto 0.8 10^3/uL (0.3-0.8); Monocytes Percent Auto 7.6 % (1.7-12.0); Neutrophils Percent Auto 60.4 % (43.0-75.0); Platelet Count 239 10^3/uL (150-450); Red Blood Count 3.01 10^6/uL (4.20-5.40); Red Cell Distribution Width 14.4 % (11.0-15.0); White Blood Count 9.9 10^3/uL (4.0-11.0)
[2023-01-02 05:22] VITALS: BP 100/56; PULSE 80; RESP 16; TEMP 37.2; O2SAT 90
[2023-01-02 08:00] VITALS: RESP 16
--- NOTE | 2023-01-02 09:44 | PM.DS1 ---
DS: Providers Provider Date of admission: 12/30/22 13:30 Primary care physician: Yair De La Cruz Admitting clinician: Chucky Hooper Consults: 12/30/22 16:01 Consult to Hospitalist Routine Consulting Provider: Charlette Simpson Anticipated date of discharge: 01/02/23 DS: Diagnosis Discharge Diagnosis (1) Acute calculous cholecystitis: (2) Anxiety: (3) Tobacco abuse: DS: Summary Hospital Course Hospital Course: 62-year-old female presented with acute cholecystitis and cholelithiasis. She was taken to surgery and had an uneventful robotic cholecystectomy performed regrown and hematocrit dropped dramatically the next day and that blood count was rechecked and was stable. She was observed for another twenty-four hours her hemoglobin and hematocrit remained stable but she developed large amount of ecchymosis about the abdominal wall compatible with a hematoma. She was tolerating diet and ambulating and passing flatus prior to discharge. She'll be discharged home and take Tylenol or ibuprofen when necessary pain. She is to follow-up in two weeks and she is to remain off work and no lifting greater than 5 pounds. Time spent discussing smoking cessation with patient: 3 to 10 minutes Status at Discharge Functional status at discharge: independent ambulation Overall status at discharge: patient is progressing back to baseline Time Spent with Patient Time attestation: Total time spent providing and/or coordinating discharge services: Specific discharge activities: no lifting greater than 5 pounds; no driving in routine laparoscopic cholecystectomy instructions Exam Constitutional Vital Signs - 24 hr 01/01/23 12:24 01/01/23 12:24 01/01/23 14:49 Temperature 98.6 F Pulse Rate 89 Respiratory Rate 16 Blood Pressure [Left Arm] Blood Pressure [Right Arm] 109/68 Pulse Oximetry 92 L 92 L 95 Oxygen Delivery Method Room Air Room Air Fraction of Inspired Oxygen 21 01/01/23 19:44 01/01/23 23:05 01/02/23 05:22 Temperature 98.5 F 99.0 F Pulse Rate 80 80 Respiratory Rate 16 Blood Pressure [Left Arm] 108/65 Blood Pressure [Right Arm] 100/56 L Pulse Oximetry 91 L 90 L 90 L Oxygen Delivery Method Room Air Room Air Room Air Fraction of Inspired Oxygen 01/02/23 08:00 Temperature Pulse Rate Respiratory Rate 16 Blood Pressure [Left Arm] Blood Pressure [Right Arm] Pulse Oximetry Oxygen Delivery Method Fraction of Inspired Oxygen DS: Data Data Completed and Pending Labs on day of discharge: Labs from last 24 hours 01/02/23 01/01/23 04:16 11:00 WBC 9.9 14.7 H RBC 3.01 L 3.34 L Hgb 8.6 L 9.6 L Hct 27.7 L 30.4 L MCV 92.0 91.0 MCH 28.6 28.7 MCHC 31.0 31.6 RDW 14.4 14.1 Plt Count 239 273 MPV 10.4 10.8 Neut % (Auto) 60.4 71.6 Lymph % (Auto) 29.7 20.5 [place] % (Auto) 7.6 7.2 Eos % (Auto) 1.3 0.1 L Baso % (Auto) 0.7 0.3 Neut # (Auto) 6.0 10.5 H Lymph # (Auto) 2.9 3.0 [place] # (Auto) 0.8 1.1 H Eos # (Auto) 0.1 0.0 Baso # (Auto) 0.1 0.1 Discharge Plan Discharge Condition: Good Time of Disposition Decision: 01/02/23 09:40 Assessment: abdomen soft nontender with incisions clean dry and intact; Patient passing flatus; tolerating diet without nausea or vomiting; pain under control Patient noted to have extensive ecchymosis about the right lateral abdominal wall most likely the cause of her anemia. She was told he could become worse as long as she is not having chest pain or shortness of breath or lightheadedness she made his discharge home. Hemoglobin and hematocrit was stable at 8.6 and twenty-five this morning. Plan of Treatment: discharge home and have patient follow-up in the office in ten days to two weeks with routine postop laparoscopic cholecystectomy instructions She may take Tylenol or ibuprofen when necessary pain. Discharge Medications: Continued citalopram 40 mg tablet 40 mg PO .daily famotidine 20 mg tablet 20 mg PO Q12H Activity Detail: no lifting greater than 5 pounds for one month. Remain off work up and tenacious two weeks. Diet: advance to your usual diet Forms: Portal Instructions
[2023-01-02 11:11] VITALS: O2SAT 92
--- NOTE | 2023-01-02 12:26 | PM.PN ---
Progress Note: Subjective Subjective Interval history: Patient feels much improved today. Exam Constitutional Vital Signs - 24 hr 01/02/23 11:11 01/01/23 14:49 01/01/23 19:44 Temperature 98.6 F Pulse Rate 89 Respiratory Rate 16 Blood Pressure [Left Arm] Blood Pressure [Right Arm] 109/68 Pulse Oximetry 92 L 95 91 L Oxygen Delivery Method Room Air Room Air Room Air 01/01/23 23:05 01/02/23 05:22 01/02/23 08:00 Temperature 98.5 F 99.0 F Pulse Rate 80 80 Respiratory Rate 16 16 Blood Pressure [Left Arm] 108/65 Blood Pressure [Right Arm] 100/56 L Pulse Oximetry 90 L 90 L Oxygen Delivery Method Room Air Room Air HENMT Common normals: normocephalic Chest Common normals: inspection of chest normal Respiratory Common normals: normal respiratory effort, no retractions, no use of accessory muscles and clear to auscultation bilaterally Cardio Common normals: no JVD Palpation: normal PMI Rate: regular rate Rhythm: regular rhythm Progress Note: Objective Labs Labs: Short CBC 01/02/23 Range/Units 04:16 WBC 9.9 (4.0-11.0) 10^3/uL Hgb 8.6 L (12.0-16.0) g/dL Hct 27.7 L (36.0-48.0) % Plt Count 239 (150-450) 10^3/uL Progress Note: A&P Assessment and Plan (1) Acute calculous cholecystitis: (2) Anxiety: (3) Tobacco abuse: Plan #1 acute cholecystitis with cholelithiasis-continue IVF, Leukocytosis resolved-agree with discharge patient to home #2 anxiety-given Vistaril for nighttime #3 elevated blood pressure-PRN? hydralazine #4 tobacco abuse-is not desire to quit and does not want a nicotine patch at this time #5 Acute blood loss anemia secondary to the above.? Possibly more likely dilutional as well.? Doubt significant bleeding.? Hemoglobin actually improved with repeat labs from this morning Fall Risk Details Roberto Fall Scale Risk Level: Moderate Fall Risk Current Medications: Current Medications Acetaminophen (Acetaminophen 325 Mg Tablet) 650 mg PO Q6H PRN PRN Reason: Fever Last Admin: 01/01/23 00:11 Dose: 650 mg Celecoxib (Celecoxib 200 Mg Capsule) 200 mg PO QHS [facility] Last Admin: 01/01/23 21:28 Dose: Not Given Hydralazine HCl (Hydralazine Hcl 20 Mg/Ml Vial) 10 mg IVP Q4H PRN PRN Reason: Hypertension Hydromorphone HCl (Hydromorphone Hcl 0.5 Mg/0.5 Ml Syringe) 0.5 mg IV Q4H PRN PRN Reason: Pain Scale 7-10 Last Admin: 01/01/23 11:56 Dose: 0.5 mg Hydroxyzine Pamoate (Hydroxyzine Pamoate 25 Mg Capsule) 25 mg PO BEDTIME PRN PRN Reason: Anxiety Last Admin: 01/01/23 21:32 Dose: 25 mg Ciprofloxacin/Dextrose (Cipro In 5 % Dextrose 400 Mg/200 Ml Piggyback) 400 mg in 200 mls @ 200 mls/hr IV Q12H [facility] Last Admin: 01/02/23 11:40 Dose: Not Given Metronidazole (Flagyl 500 Mg/100 Ml Premix) 500 mg in 100 mls @ 100 mls/hr IV Q8H [facility] Last Admin: 01/02/23 11:40 Dose: Not Given Ondansetron HCl (Ondansetron Pf 4 Mg/2 Ml Vial) 4 mg IV Q6H PRN PRN Reason: Nausea Last Admin: 12/31/22 06:47 Dose: 4 mg Ondansetron HCl (Ondansetron 4 Mg Rapdis Tablet) 4 mg PO Q6H PRN PRN Reason: Nausea And Vomiting Pantoprazole Sodium (Pantoprazole Sodium 40 Mg Vial) 40 mg IV Q24H [facility] Last Admin: 01/01/23 17:41 Dose: 40 mg Promethazine HCl (Promethazine Hcl 25 Mg/Ml Vial) 25 mg IV Q6H PRN PRN Reason: Nausea And Vomiting Sodium Chloride (0.9 % Sodium Chloride 10 Ml Syringe - Saline Flush) 10 ml IV Q15M PRN PRN Reason: flush Tramadol HCl (Tramadol Hcl 50 Mg Tablet) 50 mg PO Q6H PRN PRN Reason: Pain Scale 4-6 Last Admin: 01/01/23 17:42 Dose: 50 mg Time Spent With Patient Time: Total time spent is greater than 50% in coordination of care (as documented) at patient's floor/unit and/or counseling patient:
--- NOTE | 2023-01-03 16:25 | CM.DCFOLLOWU ---
Person spoke with:patient How are you feeling?well How is your pain? no pain Did you understand your discharge instructions? yes Do you have any questions about your discharge instructions? no Were you given any prescriptions at discharge? no Were you able to get your prescriptions filled? no Do you understand how to take your medications as ordered? yes Do you have any questions about your follow up appointment and do you plan to keep your follow up appointment? yes Is there anything else that you would like to discuss? no Questions/Comments/Concerns/Other: Patient was not happy with her care in the ER. She came in 2 days in a row. Her ER physicians were Dr. De La Cruz and Sean Collins and she was not pleased with her care in ER. She was very pleased with Dr. Hooper and the nurses on the floor.
--- NOTE | 2023-01-04 16:22 | CM.DCFOLLOWU ---
Person spoke with:patient and his How are you feeling? well How is your pain? no pain Did you understand your discharge instructions? yes Do you have any questions about your discharge instructions? patient and stated he was prescibed a sleeping pill, but no prescription at pharmacy. I checked dc orders, but no documentation of sleeping pill. Advised to call [facility] office in morning. Were you given any prescriptions at discharge? yes, aspirin Were you able to get your prescriptions filled? did not fill Do you understand how to take your medications as ordered? yes Do you have any questions about your follow up appointment and do you plan to keep your follow up appointment? no questions and yes will follow up Is there anything else that you would like to discuss? no Questions/Comments/Concerns/Other:
== END 2023-01-02 13:09 | disposition home or self-care (01) ==
LOC: ER 14:20 → MS 16:02
PROVIDERS: Family Medicine; Admitting Provider Surgery; Emergency Provider Emergency Medicine; PCP Emergency Medicine; Visit Provider Surgery
PROC: (CPT 47562; principal; 2022-12-31 07:30)
DX: K80.12 Calculus of gallbladder with acute and chronic cholecystitis without obstruction (principal); F41.9 Anxiety disorder, unspecified; R03.0 Elevated blood-pressure reading, without diagnosis of hypertension; F17.210 Nicotine dependence, cigarettes, uncomplicated; R10.11 Right upper quadrant pain; D62 Acute posthemorrhagic anemia
CPT/HCPCS: 47562; 36415; 74177; 80053; 81001; 81003; 83690; 85025; 85027; 85610; 85730; 88304; 94667; 94668; 94761; 96365; 96368; 96375; 96376; 99285; G0378; J1170; J2704; Q9967